=== PATIENT | male | born 1985 | race Caucasian/White ===

== ENCOUNTER 2017-05-15 05:17 | Inpatient (IN) | payer OTHER ==
[~2017-05-15] VITALS: Ht 182.9 cm; Wt 94.1 kg
[~2017-05-15 05:17] MED LIST: FENT100D T-DERMAL; OXYC1CAP PO
[2017-05-15] MEDS ORDERED: SODIUM CHLORID 0.9% 500 ML IV PRN (05:45)
[2017-05-15] MEDS ORDERED: METOPROLOL TARTRATE 25 MG TAB PO PRN (05:45)
[2017-05-15] MEDS ORDERED: CHLORHEXIDINE GLUCONATE 4% SOLN 120 ML BTL TOPICAL SCH (05:45)
[2017-05-15] MEDS ORDERED: LACTATED RINGER'S 1000 ML IV PRN (05:45)
[2017-05-15] MEDS ORDERED: CHLORHEXIDINE GLUCONATE 2 % 1 PACK (2 CLOTHS) TOPICAL PRN (05:45)
[2017-05-15] MEDS ORDERED: POVIDONE IODINE 7.5% SCRUB 118 ML BOTTLE TOPICAL SCH (05:45)
[2017-05-15] MEDS ORDERED: INSULIN HUMAN REGULAR 1,000 UNITS/10 ML VIAL SQ PRN (05:45)
[2017-05-15] MEDS ORDERED: VANCOMYCIN 1000 MG/NS 250 ML (for <70 kg) IV SCH ×2 (05:45)
[2017-05-15] MEDS ORDERED: DEXAMETHASONE SOD PHOS 20 MG/5 ML VIAL IV SCH (06:00)
[2017-05-15] MEDS ORDERED: ceFAZolin 2 GM PREMIX 50 ML IV SCH (06:00)
[2017-05-15] MEDS ORDERED: GENTAMICIN SULFATE 80 MG/2 ML VIAL ONE (06:05)
[2017-05-15] MEDS ORDERED: ACETAMINOPHEN 1000 MG/100 ML 100 ML IV ONE (06:17)
[2017-05-15] MEDS ORDERED: FAMOTIDINE 20 MG/2 ML VIAL ONE (06:39)
[2017-05-15] MEDS ORDERED: ASPI81CH37 CHEW (06:51)
[2017-05-15] MEDS ORDERED: ENOX40P SQ (06:51)
[2017-05-15] MEDS ORDERED: OXYC-395 PO (06:52)
[2017-05-15] MEDS ORDERED: MORPHINE SULFATE 4 MG/ML INJ IV PUSH PRN (07:00)
[2017-05-15] MEDS ORDERED: diphenhydrAMINE HCL 50 MG/ML VIAL IV PRN (07:00)
[2017-05-15] MEDS ORDERED: TRANEXAMIC PERI-ARTICULAR 3,000 MG/NS 100 ML P-ARTICULR SCH ×2 (07:00)
[2017-05-15] MEDS ORDERED: Post-op Orders (for Pharmacy) MISC XX ONE (07:00)
[2017-05-15] MEDS ORDERED: TRANEXAMIC ACID IV SCH (07:00)
[2017-05-15] MEDS ORDERED: SODIUM CHLORIDE 0.9% IV SCH (07:00)
[2017-05-15] MEDS ORDERED: ONDANSETRON HCL 4 MG/2 ML VIAL IVP PRN (07:00)
[2017-05-15] MEDS ORDERED: BISACODYL 10 MG SUPP RECTAL PRN (07:00)
[2017-05-15] MEDS ORDERED: ZOLPIDEM TARTRATE 5 MG TAB PO PRN (07:00)
[2017-05-15] MEDS ORDERED: PROPOFOL 200 MG/20 ML AMP ONE (07:35)
[2017-05-15] MEDS: EXPAREL PERI-ARTICULAR INJECTION (TOTAL VOL. 60 ML) P-ARTICULR SCH ×4 (07:44→07:45)
[2017-05-15] MEDS ORDERED: SODIUM CHLORIDE 0.9% FLUSH 10 ML FLUSH IV FLUSH PRN (08:30)
--- NOTE | 2017-05-15 08:32 | RADRPT ---
EXAM DATE/TIME: 05/15/2017 07:15 [facility] COMPARISON: No previous studies available for comparison. INDICATIONS : Post-op total right hip arthroplasty. MEDICAL HISTORY : None. SURGICAL HISTORY : None. ENCOUNTER: Initial ACUITY: 1 day PAIN SCORE: Non-responsive. LOCATION: Right Hip. FINDINGS: Three intraoperative fluoroscopic hold images are provided. There is a right hip arthroplasty in norm al anatomic alignment with marked blastic components in good position. No significant large osseous b jeni fragment. CONCLUSION: 1. Status post right hip arthroplasty in anatomic alignment, as above. Nader Chambers MD on May 15, 2017 at 8:29 Board Certified Radiologist. This report was verified electronically.
[2017-05-15] MEDS ORDERED: REMOVE OLD FENTANYL PATCH T-DERMAL SCH (09:00)
[2017-05-15] MEDS ORDERED: fentaNYL 100 MCG/HR PATCH T-DERMAL SCH (09:00)
--- NOTE | 2017-05-15 09:04 | MP ---
cc: BERTA SAINZ DATE OF SURGERY: 05/15/2017 PREOPERATIVE DIAGNOSIS Right hip osteoarthritis with osteonecrosis. POSTOPERATIVE DIAGNOSIS Right hip osteoarthritis with osteonecrosis. PROCEDURE Right total hip arthroplasty. SURGEON Dr. Berta Sainz. COMPUTERIZED [employer] [facility] [place] ANESTHESIA General. ESTIMATED BLOOD LOSS 100 ccs. COMPLICATIONS None. IMPLANTS USED DePuy Corail size 16 Press-Fit standard offset femoral stem, size 54 solid pinnacle Gription cup, size 36 mm ceramic head, +5 neck, 36 mm neutral highly cross-linked polyethylene liner. JUSTIFICATION This patient is a 31-year-old male with history of severe end-stage osteonecrosis and osteoarthritis of the right hip joint. He has severe disabling pain with standing, walking, ambulation, weight-bear activities and even severe pain at rest. The pain interferes with activities of daily living. He has failed greater than 3 months of nonoperative conservative treatment to include medication, therapy, ambulatory assisted aids, home exercise program, activity modification. The patient is not overweight. X-ray of the right hip reveals severe end-stage osteoarthritis with osteonecrosis. There is complete flattening and collapse of the femoral head. There is complete loss of joint space and cartilage, subchondral sclerosis, subchondral cyst, osteophyte formation, superior subluxation. The patient was counseled as to the risks, benefits and alternatives to a total hip arthroplasty. The risks were discussed which include but not limited to anesthesia, bleeding, infection, damage to nerves, blood vessels, pain, stiffness, leg length discrepancy, dislocation, blood clots, pulmonary embolism, even . The patient's pain is severe he favored the benefits over the risks. He did wish to proceed with surgery. PROCEDURE IN DETAIL A written consent was obtained. The patient was identified by name and taken to the operating room and supine on the operating table. General anesthesia was administered as well as 2 grams of IV Ancef and 1 gram of IV vancomycin. The right and left feet were placed in a padded traction boot. The right hip and right lower extremity was prepped and draped using isopropyl alcohol, Hibiclens solution and Chloraprep solution. After time-out was performed a longitudinal incision was made over the anterolateral aspect of the right hip. The fascial layer was incised. Dissection was carried over tensor fascia quincy beneath the rectus femoris to allow exposure of the anterior hip capsule. A capsulotomy incision was performed, oscillating saw was used to perform a femoral neck cut. The osteoarthritic femoral head and neck component was removed. A 10 blade scalpel was used to excise the labrum. Sequential reaming began at size 49 and was carried through to size 54. Subsequently, a solid pinnacle Gription cup was implanted in approximately 45 degrees of abduction and 10 degrees of anteversion. There was good purchase and fixation after insertion of the cup. A screw hole eliminator was placed followed by neutral liner. The liner was impacted in place and tested for stability. Attention was turned to the femur where the leg was externally rotated, extended and adducted. The capsule was released off the undersurface of the greater trochanter to allow for elevation and lateralization of the femur. Box cutting osteotome was used to gain entrance into the intramedullary canal of the femur. This was followed by a canal finder and sequential broaching up to size 16. A calcar planer was used to plane the calcar. Trial head and neck combinations were evaluated and final components implanted. With the current components the leg could achieve external rotation of 70 degrees and extension all the way down to the ground without evidence of anterior instability or impingement. Fluoroscopic images showed appropriate implantation of components. Surgical wound was thoroughly irrigated with sterile saline pulse lavage antibiotic impregnated solution. Fascial layer was closed with #1 Vicryl suture, subcutaneous layer with 2-0 Vicryl suture, skin was closed with Dermabond. Sterile dressings were applied. The patient tolerated the procedure well with no intraoperative complications noted. Rayo Blount, physician access services assistant certified was present during the entire procedure to include patient positioning and the procedure itself. The medical necessity of physician access services assistant was indicated in this case due to the complexity of the procedure. He assisted with appropriate manipulation of the leg and also retraction muscle, tendon, bone, neurovascular structures. He assisted with preparation of bone and also implantation of the prosthetic replacement. MD ARMIDA Caicedo/DANIELA /8:21 AM /8:42 AM
[2017-05-15] MEDS ORDERED: LORazepam 2 MG/ML VIAL ONE (09:15)
[2017-05-15] MEDS: SODIUM CHLOR 0.9% 1000 ML INJ 1,000 ML IV SCH ×2 (09:15→18:14)
[2017-05-15] MEDS ORDERED: DO NOT ADM ANY ANTICOAGULANT DRUGS PRN (09:15)
--- NOTE | 2017-05-15 09:19 | RADRPT ---
EXAM DATE/TIME: 05/15/2017 08:41 [facility] COMPARISON: No previous studies available for comparison. INDICATIONS : Post op total right hip. MEDICAL HISTORY : None. SURGICAL HISTORY : None. ENCOUNTER: Initial ACUITY: 1 day PAIN SCORE: 0/10 LOCATION: Right Hip FINDINGS: The patient has undergone right total hip arthroplasty. The femoral and acetabular components appear well-seated. There is deformity of the left femoral head which is sclerotic as well as areas of lucen cy and flattening of the normal rounded contour suspect for avascular necrosis and associated osteoar thritis. CONCLUSION: Right hip arthroplasty. Christiano Bradley MD on May 15, 2017 at 9:17 Board Certified Radiologist. This report was verified electronically.
[2017-05-15] MEDS ORDERED: *morphine SULFATE 8 MG/ML PERIprocedure ONLY ONE (09:20)
[2017-05-15] MEDS ORDERED: LORazepam 2 MG/ML VIAL IV PUSH ONE (09:30)
[2017-05-15] MEDS ORDERED: *HYDROmorphone PF 1 MG VIAL PERIprocedural Use ONLY ONE (10:30)
[2017-05-15] MEDS ORDERED: HYDROmorphone HCL PF 1 MG/ML VIAL IV PUSH PRN (10:45)
[2017-05-15 12:00] VITALS: BP 132/85; PULSE 90; RESP 20; TEMP 98.1; O2SAT 98
[2017-05-15] MEDS ORDERED: PROPOFOL 200 MG/20 ML AMP IV ONE (12:00)
[2017-05-15] MEDS ORDERED: ONDANSETRON HCL 4 MG/2 ML VIAL IV PUSH ONE (12:00)
[2017-05-15] MEDS ORDERED: ePHEDrine/NS 25 MG/5 ML SYR IV ONE (12:00)
[2017-05-15] MEDS ORDERED: MIDAZOLAM HCL 2 MG/2 ML VIAL IV ONE (12:00)
[2017-05-15] MEDS ORDERED: LACTATED RINGER'S 1000 ML INJ 1,000 ML IV ONE (12:00)
[2017-05-15] MEDS ORDERED: PHENYLEPH/NS 1000 MCG/10 ML SYR IV ONE (12:00)
--- NOTE | 2017-05-15 12:19 | PD.CONS ---
HPI Service [facility] Consult Requested By Dr. Jones Reason for Consult medical management Primary Care Physician No Primary Care Physician Diagnoses: History of Present Illness This is a 31 y/o M with chronic back and right hip pain. patient had elective surgery with Dr. Jones due to severe end-stage osteonecrosis and osteoarthritic. [facility] consulted for medical management. That size his chronic pain he has no other medical conditions. Patient complained that pain is not being controlled to morphine. Dealt with patient's nurse stated that Dr. Jones increase patient pain regimen to Dilaudid. Otherwise patient has no complains. All other review systems reviewed and negative. Past Family Social History Allergies: Coded Allergies: Iodinated Contrast- Oral and IV Dye (Verified Allergy, Severe, Anaphylaxis , 05/15/17) hydrocodone (Unverified Allergy, Severe, 05/15/17) shellfish derived (Verified Allergy, Severe, Anaphylaxis, 05/15/17) Past Medical History Chronic lower back pain Severe right hip osteoarthritis Past Surgical History Steroid injection the lower back Reported Medications Oxycodone (Oxycodone HCl) 10 Mg Tab 10 Mg PO Q4HR Aspirin Low Dose (Aspirin) 81 Mg Chew 81 Mg CHEW BID 30 Days Lovenox Inj (Enoxaparin Sodium) 40 Mg/0.4 Ml Syr 40 Mg SQ DAILY Reported Fentanyl Patch 72 HR (Fentanyl) 100 Mcg/Hr Patch 100 Mcg T-DERMAL Q72H Remove old patch when new one placed. Oxycodone (Oxycodone HCl) 5 Mg Cap 5 Mg PO Q6H PRN Active Ordered Medications Current Medications Lactated Ringer's 1,000 ml @ 30 mls/hr Q24H PRN IV SEE LABEL COMMENTS Last administered on 05/15/17t 05:55; Start 05/15/17 at 05:45; Stop 05/15/17 at 08:36 ; Status DC Sodium Chloride 500 ml @ 30 mls/hr [id number] PRN IV SEE LABEL COMMENTS; Start at 05:45; Stop 05/15/17 at 08:36; Status DC Metoprolol Tartrate (Lopressor) 25 mg HEAD OF SALES PRN PO SEE LABEL COMMENTS; Start 05/15/17 at 05:45; Stop 05/18/17 at 05:44 Chlorhexidine Gluconate (Chlorhexidine 2% Cloth) 3 pack [employer] PRN TOPICAL SEE LABEL COMMENTS Last administered on 05/15/17 05:40; Start 05/15/17 at 05:45 ; Stop 05/18/17 at 05:44 Insulin Human Regular (NovoLIN R INJ) See Protocol Table ... HEAD [employer]ES PRN SQ SEE PROTOCOL TABLE; Start 05/15/17 at 05:45; Stop 05/18/17 at 05:44 Povidone Iodine (Betadine 7.5% Scrub) 1 applic ONCE TOPICAL ; Start 05/15/17 at 05:45; Stop 05/18/17 at 05:44 Chlorhexidine Gluconate (Hibiclens 4% Top Soln) 1 applic ONCE TOPICAL Last administered on 05/15/17 05:45; Start 05/15/17 at 05:45; Stop 05/18/17 at 05:44 Cefazolin Sodium/ Dextrose 50 ml @ 100 mls/hr [employer] IV Last administered on 05/15/17 06:08; Start 05/15/17 at 06:00; Stop 05/16/17 at 05:59 Vancomycin HCl 1000 mg/Sodium Chloride 250 ml @ 250 mls/hr HEAD [employer] IV Last administered on 05/15/17 06:09; Start 05/15/17 at 05:45; Stop 05/16/17 at 05:44 Tranexamic Acid 1412 mg/Sodium Chloride 114.12 ml @ 200 mls/ hr ONCE IV Last administered on 05/15/17 07:43; Start 05/15/17 at 07:00; Stop 05/15/17 at 13:00 Bupivacaine Liposome 20 ml/ Sodium Chloride 60 ml @ 120 mls/hr ONCE P-ARTICULR Last administered on 05/15/17 07:45; Start 05/15/17 at 07:00; Stop 05/15/17 at 13:00 Tranexamic Acid 3000 mg/Sodium Chloride 130 ml @ 260 mls/hr ONCE P-ARTICULR ; Start 05/15/17 at 07:00; Stop 05/15/17 at 13:00 Dexamethasone Sodium Phosphate (Decadron Inj) 10 mg [employer] IV Last administered on 05/15/17 06:02; Start 05/15/17 at 06:00; Stop 05/16/17 at 05:59 Gentamicin Sulfate (Gentamicin Inj) 240 mg STK-MED ONCE .ROUTE Last administered on 05/15/17 07:42; Start 05/15/17 at 06:05; Stop 05/15/17 at 06:06 ; Status DC Acetaminophen 100 ml @ As Directed STK-MED ONCE IV ; Start 05/15/17 at 06:17; Stop 05/15/17 at 06:18; Status DC Famotidine (Pepcid Inj) 20 mg STK-MED ONCE .ROUTE ; Start 05/15/17 at 06:39; Stop 05/15/17 at 06:40; Status DC Fentanyl (Duragesic 100 Mcg Patch.72 Hr) 1 patch Q72H T-DERMAL Last administered on 05/15/17 09:30; Start 05/15/17 at 09:00 Sodium Chloride 1,000 ml @ 100 mls/hr Q10H IV Last administered on 05/15/17 09:15; Start 05/15/17 at 08:00 Sodium Chloride (NS Flush) 2 ml UNSCH PRN IV FLUSH FLUSH AFTER USING IV ACCESS Last administered on 05/15/17 11:27; Start 05/15/17 at 08:30 Sodium Chloride (NS Flush) 2 ml BID IV FLUSH ; Start 05/15/17 at 09:00 Cefazolin Sodium 1000 mg/Sodium Chloride 100 ml @ 200 mls/hr Q6H IV Last administered on 05/15/17 09:57; Start 05/15/17 at 10:00; Stop 05/15/17 at 22:29 Miscellaneous Information (Post-op Orders (for Pharmacy)) STAT ONCE XX ; Start 05/15/17 at 07:00; Stop 05/15/17 at 08:22; Status DC Enoxaparin Sodium (Lovenox Inj) 40 mg Q24H SQ ; Start 05/16/17 at 08:00; Stop 05/25/17 at 08:01 Morphine Sulfate (Morphine Inj) 3 mg Q3H PRN IV PUSH Pain >7 when off [employer] Last administered on 05/15/17 11:26; Start 05/15/17 at 07:00; Stop 05/15/17 at 11:29 ; Status DC Multivitamins/ Minerals Therapeutic (Theragran M Tab) 1 tab BID PO ; Start 05/16 at 21:00; Stop 07/15/17 at 20:59 Ondansetron HCl (Zofran Inj) 4 mg Q6H PRN IVP NAUSEA OR VOMITING; Start at 07:00 Docusate Sodium (Colace) 100 mg BID PO ; Start 05/16/17 at 21:00 Zolpidem Tartrate (Ambien) 5 mg HS PRN PO SLEEP; Start 05/15/17 at 07:00 Bisacodyl (Dulcolax Supp) 10 mg DAILY PRN RECTAL CONSTIPATION; Start 05/15/17 at 07:00 Diphenhydramine HCl (Benadryl Inj) 25 mg Q6H PRN IV ITCHING; Start 05/15/17 at 07:00 Oxycodone HCl (Roxicodone) 10 mg Q4H PRN PO PAIN SCALE 4 TO 10; Start 05/15/17 at 07:00 Propofol (Diprivan 200 Mg/20 ml Inj) 600 mg STK-MED ONCE .ROUTE ; Start at 07:35; Stop 05/15/17 at 07:36; Status DC Miscellaneous Information 1 Q72H T-DERMAL ; Start 05/15/17 at 09:00 Miscellaneous Information ALL NURSING DEPARTME... UNSCH PRN .XX SEE LABEL COMMENTS; Start 05/15/17 at 09:15; Stop 05/16/17 at 09:14 Lorazepam (Ativan Inj) 2 mg STK-MED ONCE .ROUTE ; Start 05/15/17 at 09:15; Stop 05/15/17 at 09:16; Status DC Morphine Sulfate (*morphine INJ PERIprocedure ONLY) 8 mg STK-MED ONCE .ROUTE Last administered on 05/15/17 09:21; Start 05/15/17 at 09:20; Stop 05/15/17 at 09:21; Status DC Lorazepam (Ativan Inj) 1 mg NOW ONCE IV PUSH Last administered on 05/15/17 09 :17; Start 05/15/17 at 09:30; Stop 05/15/17 at 09:31; Status DC Hydromorphone HCl (*DILAUDID PF INJ PERIprocedural ONLY) 1 mg STK-MED ONCE .ROUTE Last administered on 05/15/17 10:30; Start 05/15/17 at 10:30; Stop at 10:31; Status DC Hydromorphone HCl (Dilaudid Pf Inj) 1 mg Q4H PRN IV PUSH PAIN SCALE 4 TO 10; Start 05/15/17 at 10:45; Status UNV Hydromorphone HCl (Dilaudid Pf Inj) 1 mg Q4H PRN IV PUSH BREAKTHROUGH PAIN; Start 05/15/17 at 11:30 Family History Father had history of diabetes. Social History Patient was at home. Denies any alcohol tobacco use. Physical Exam Vital Signs Vital Signs Date Time Temp Pulse Resp B/P (MAP) Pulse Ox O2 Delivery O2 Flow Rate FiO2 05/15/17 10:30 98.2 82 18 126/76 (93) 100 Room Air 05/15/17 10:15 86 18 120/71 (87) 100 Room Air 05/15/17 10:00 75 18 107/69 (82) 100 Nasal Cannula 2 05/15/17 09:30 82 18 109/69 (82) 98 Nasal Cannula 2 05/15/17 09:15 84 18 99/64 (76) 99 Nasal Cannula 2 05/15/17 09:00 86 18 107/70 (82) 99 Nasal Cannula 2 05/15/17 08:45 78 16 101/51 (68) 99 Nasal Cannula 2 05/15/17 08:37 97.7 85 16 100/51 (67) 99 Simple Mask 6 Physical Exam GENERAL: This is a well-nourished, well-developed patient, in no apparent distress. SKIN: No rashes, ecchymoses or lesions. Cool and dry. HEAD: Atraumatic. Normocephalic. No temporal or scalp tenderness. EYES: Pupils equal round and reactive. Extraocular motions intact. No scleral icterus. No injection or drainage. ENT: Nose without bleeding, purulent drainage or septal hematoma. Throat without erythema, tonsillar hypertrophy or exudate. Uvula midline. Airway patent. NECK: Trachea midline. No JVD or lymphadenopathy. Supple, nontender, no meningeal signs. CARDIOVASCULAR: Regular rate and rhythm without murmurs, gallops, or rubs. RESPIRATORY: Clear to auscultation. Breath sounds equal bilaterally. No wheezes , rales, or rhonchi. GASTROINTESTINAL: Abdomen soft, non-tender, nondistended. No hepato-splenomegaly , or palpable masses. No guarding. MUSCULOSKELETAL: Limited range of motion of lower back secondary to pain. 5 out of 5 lower extremity strength. Sensation is intact. NEUROLOGICAL: Awake and alert. Cranial nerves II through XII intact. Motor and sensory grossly within normal limits. Five out of 5 muscle strength in all muscle groups. Normal speech. Imaging Last Impressions Hip and Pelvis X-Ray 05/15/17 0000 Signed Impressions: Service Date/Time: Monday, May 15, 2017 08:41 - CONCLUSION: Right hip arthroplasty. Christiano Bradley MD Hip X-Ray 05/15/17 0000 Signed Impressions: Service Date/Time: Monday, May 15, 2017 07:15 - CONCLUSION: 1. Status post right hip arthroplasty in anatomic alignment, as above. Nader Chambers MD Assessment and Plan Assessment and Plan 31-year-old male with chronic lower back pain and severe right hip osteoarthritis/osteonecrosis right hip osteoarthritis/osteonecrosis -Management per orthopedic surgeon. -Status post Right total hip arthroplasty. -Pain management per orthopedic surgeon. Chronic back pain -Home regimen already resumed. DVT prophylaxis -Lovenox Discussed Condition With Patient medically clear for discharge. July Huizar MD May 15, 2017 12:19
[2017-05-15] MEDS: HYDROmorphone HCL PF 1 MG/ML VIAL IV PUSH PRN ×3 (12:31→20:57)
[2017-05-15] MEDS: SODIUM CHLORIDE 0.9% FLUSH 10 ML FLUSH IV FLUSH SCH ×2 (12:31→20:57)
--- NOTE | 2017-05-15 12:46 | HHI.FF ---
Face to Face Verification Diagnosis: (1) Primary localized osteoarthrosis, pelvic region and thigh Physical Therapy Gait training, Safety evaluation, Transfer training, bed to chair Hip: Total hip, Protocol: Right Right LE Weight Bearing: WB as tolerated Nursing RN: 3 days/week x 2 weeks Nursing: Bárbara teaching, Dressing changes Dressing Changes: Daily dressing change I have seen patient Yang Samaniego on 05/15/17. My clinical findings support the need for the requested home health care services because: Limited ability to care for self High risk of falls I certify that my clinical findings support that this patient is homebound because: Post-op weakness Unsteady gait/balance Murphy Blount May 15, 2017 12:46
--- NOTE | 2017-05-15 12:46 | HHI.DCPOC ---
Discharge Care Plan Diagnosis: (1) Primary localized osteoarthrosis, pelvic region and thigh Your Health Problems Are: Difficulty with ADL Goals to Promote Your Health * To prevent worsening of your condition and complications * To maintain your health at the optimal level Directions to Meet Your Goals Take your medications as prescribed Follow your dietary instruction Follow activity as directed Keep your appointments as scheduled Take your immunizations and boosters as scheduled If your symptoms worsen call your PCP, if no PCP go to Urgent Care Center or Emergency Room Smoking is Dangerous to Your Health. Avoid second hand smoke Call the 24-hour hour crisis hotline for domestic abuse at Murphy Blount May 15, 2017 12:46
[2017-05-15] MEDS ORDERED: WALKER WHEELS/F1 MIS (12:47)
[2017-05-15 16:00] VITALS: BP 144/88; PULSE 93; RESP 18; TEMP 98.4; O2SAT 99
[2017-05-15 17:49] VITALS: O2SAT 99
[2017-05-15 20:00] VITALS: BP 131/77; PULSE 100; RESP 17; TEMP 98.7; O2SAT 98
[2017-05-16] VITALS: BP 157/87; PULSE 102; RESP 16; TEMP 98.2; O2SAT 97
[2017-05-16] MEDS: HYDROmorphone HCL PF 1 MG/ML VIAL IV PUSH PRN ×2 (01:14→05:23)
[2017-05-16 04:00] VITALS: BP 135/75; PULSE 91; RESP 16; TEMP 98; O2SAT 98
[2017-05-16] MEDS: SODIUM CHLOR 0.9% 1000 ML INJ 1,000 ML IV SCH ×2 (04:00→14:00)
[2017-05-16 05:39] LABS: HEMATOCRIT 40.9 % (39.0-51.0); MEAN CELL VOLUME 85.9 FL (80.0-100.0); MEAN CORPUSCULAR HEMOGLOBIN 28.4 PG (27.0-34.0); MEAN CORPUSCULAR HGB CONC 33.1 % (32.0-36.0); PLATELET COUNT 259 TH/MM3 (150-450); RED BLOOD COUNT 4.77 MIL/MM3 (4.50-5.90); RED CELL DISTRIBUTION WIDTH 13.7 % (11.6-17.2); REVIEW FLAG FINAL; WHITE BLOOD COUNT 14.6 TH/MM3 (4.0-11.0)
[2017-05-16 08:00] VITALS: BP 130/72; PULSE 78; RESP 16; TEMP 97.8; O2SAT 97
[2017-05-16] MEDS ORDERED: ENOXAPARIN SODIUM 40 MG/0.4 ML SYRINGE SQ SCH (08:00)
--- NOTE | 2017-05-16 08:19 | PD.ORT.PN ---
Subjective Post Op Day #: 1 Subjective Remarks having pain. muscle spasms. Objective Vitals Vital Signs Date Time Temp Pulse Resp B/P (MAP) Pulse Ox O2 Delivery O2 Flow Rate FiO2 05/16/17 04:00 98.0 91 16 135/75 (95) 98 05/16/17 00:00 98.2 102 16 157/87 (110) 97 05/15/17 20:00 98.7 100 17 131/77 (95) 98 05/15/17 17:49 99 21 05/15/17 16:00 98.4 93 18 144/88 (106) 99 05/15/17 12:00 98.1 90 20 132/85 (101) 98 05/15/17 10:30 98.2 82 18 126/76 (93) 100 Room Air 05/15/17 10:15 86 18 120/71 (87) 100 Room Air 05/15/17 10:00 75 18 107/69 (82) 100 Nasal Cannula 2 05/15/17 09:30 82 18 109/69 (82) 98 Nasal Cannula 2 05/15/17 09:15 84 18 99/64 (76) 99 Nasal Cannula 2 05/15/17 09:00 86 18 107/70 (82) 99 Nasal Cannula 2 05/15/17 08:45 78 16 101/51 (68) 99 Nasal Cannula 2 05/15/17 08:37 97.7 85 16 100/51 (67) 99 Simple Mask 6 I/O 05/15/17 05/15/17 05/15/17 05/16/17 05/16/17 05/16/17 07:00 15:00 23:00 07:00 15:00 23:00 Intake Total 50 ml 3080 ml 240 ml 480 ml Output Total 3900 ml Balance 50 ml -820 ml 240 ml 480 ml Intake Oral 480 ml 240 ml 480 ml IV Total 50 ml 2600 ml Output Urine Total 300 ml Estimated Blood Loss 600 ml Other 3000 ml # Voids 2 1 2 # Bowel Movements 0 0 0 Result Diagram: 05/16/17 0505 05/16/17 0505 Objective Remarks in bed, nad incision no erythema, no drainage neg homans nvi Assessment & Plan Ortho Post Op Day #: 1 Problem List: Assessment and Plan s/p R BRANDY anterior approach wbat daily dressing changes lovenox d/c planning home with c and pt takes high dose of chronic pain meds - pain control difficult cleared for d/c if does well with PT f/up dr. monge 2 weeks Murphy Blount May 16, 2017 08:19
[2017-05-16] MEDS ORDERED: CYCLOBENZAPRINE HCL 10 MG TAB PO PRN (08:30)
[2017-05-16] MEDS: SODIUM CHLORIDE 0.9% FLUSH 10 ML FLUSH IV FLUSH SCH (08:39)
[2017-05-16] MEDS ORDERED: INFLUENZA VIRUS VACCINE (QUADRIVALENT) 0.5 ML SYR IM ONE (10:00)
[2017-05-16 12:00] VITALS: BP 124/82; PULSE 94; RESP 16; TEMP 98.7; O2SAT 97
[2017-05-16] MEDS ORDERED: MULTIVITAMINS/MINERALS THERAPEUTIC TAB PO SCH (21:00)
[2017-05-16] MEDS ORDERED: DOCUSATE SODIUM 100 MG CAP PO SCH (21:00)
--- NOTE | 2017-05-17 08:12 | MD ---
cc: BERTA SAINZ ADMISSION DATE: 05/15/2017 DISCHARGE DATE: 05/16/2017 ADMISSION DIAGNOSIS Severe osteoarthritis and osteonecrosis of the right hip. DISCHARGE DIAGNOSIS Severe osteoarthritis and osteonecrosis of the right hip. HISTORY OF PRESENT ILLNESS Mr. Samaniego is a 31-year-old male who presented to the [facility] for evaluation by Dr. Berta Sainz regarding his severe bilateral hip pain, right greater than left. The patient states the pain has been progressive for several years and is currently inhibiting his ability to ambulate. He states he has to use crutches or a walker to move around. He is on chronic pain medication at very high doses. The patient states the pain is severe and inhibiting his activities of daily living. He has no alleviating factors although in the past he has tried multiple medications including high does prescription narcotic pain medication, assistive devices, therapy and home exercises without relief of symptoms. He does have x-ray evidence of severe osteoarthritis and osteonecrosis bilateral hip joints. While in the office the patient was counseled on his diagnosis and treatment options. The risks, benefits, indications of all were discussed in great detail. The patient did elect proceed with surgical intervention to include a right total hip arthroplasty. DATE OF SURGERY 05/15/2017 OPERATIVE PROCEDURE Right total hip arthroplasty anterior approach. POSTOP After surgery the patient was then [facility] where he received appropriate medical management, pain control, DVT prophylaxis as well as physical therapy. DISCHARGE Once being discharged from the hospital, the patient is cleared to go home where he will receive home health care and home physical therapy. CONDITION ON DISCHARGE He is in stable condition. DISCHARGE INSTRUCTIONS He may weight-bear as tolerated with anterior hip precautions. He is to receive daily dressing changes and has been instructed on proper wound care management. DISCHARGE MEDICATIONS The patient has been provided prescriptions for pain control as well as DVT prophylaxis medication. FOLLOWUP He has been provided a follow-up appointment approximately 2 weeks from his date of surgery. The patient has asked appropriate questions which have been answered. The patient has been discharged. Dictated by: Rayo Blount PA-C Berta Sainz MD JWM/BYRON /6:23 AM /8:07 AM
== END 2017-05-16 15:31 | disposition home health service (06) | DRG 470 ==
LOC: HSDI 05:17 → N06A 10:58
PROVIDERS: ADMIT Orthopaedic Surgery Sports Medicine; ATTEND Orthopaedic Surgery Sports Medicine
PROC: 0SR902A Replacement of Right Hip Joint with Metal on Polyethylene Synthetic Substitute, Uncemented, Open Approach (ICD-10-PCS; principal; 2017-05-15 06:40)
DX: M16.11 Unilateral primary osteoarthritis, right hip (principal); M87.9 Osteonecrosis, unspecified; G89.29 Other chronic pain; G62.9 Polyneuropathy, unspecified; M54.5 Low back pain; Z87.891 Personal history of nicotine dependence; Z23 Encounter for immunization
CPT/HCPCS: 73502; 76000; 80048; 85027; 86850; 86900; 86901; 90471; 90686; C1776; C9290; G0008; J0131; J0690; J1100; J1170; J1580; J1650; J2060; J2250; J2270; J2370; J2405; J3010; J3370; J7030; J7050; J7120; Q2038